=== PATIENT | female | born 1990 | race American Indian/Alaskan Native ===

== ENCOUNTER 2019-11-09 23:53 | Emergency (ER) | payer SELFPAY ==
[2019-11-10 00:05] VITALS: BP 151/104
--- NOTE | 2019-11-10 00:20 | XRay Report ---
CHEST 1 VIEW INDICATION: Chest Pain. COMPARISON: None. FINDINGS: Support devices: None. Heart: Normal. Lungs/Pleura: Subtle asymmetric density in the left lung base could be due to atelectasis but is nons pecific. Pneumonia could have this appearance, correlate clinically. Lungs are otherwise clear. No pl eural abnormality. IMPRESSION: 1. Nonspecific left basilar opacity could be due to atelectasis or pneumonia, correlate clinically. Signer Name: Dexter Morris MD Signed: 11/10/2019 12:15 AM Workstation Name: [id number] [facility] [employer] [facility]
[2019-11-10] MEDS ORDERED: KETOROLAC 30 MG/1 ML INJ IV ONE (03:15)
--- NOTE | 2019-11-10 03:28 | Emergency Department Report ---
ED Chest Pain HPI - General Chief Complaint: Chest Pain Stated Complaint: CHEST PAIN, MIGRAINE Time Seen by Provider: 11/10/19 01:57 Source: patient Mode of arrival: Ambulatory Limitations: No Limitations - History of Present Illness Initial Comments: 29 -year-old female who denies any significant past medical history present to the ER today complaining of left-sided chest pain. Patient states that she is been having constant left-sided chest pain for about 5 days. She describes it as a sharp pain that is nonradiating and seems to be worse when she moves her left arm and with deep breath. She reports SOB when in supine position. She denies any associated diaphoresis, nausea or vomiting, cough or URI symptoms. She denies any lower extremity swelling or cramping. She denies any recent long distance travel, recent surgeries, and she is not any hormones. She also complains of a left retro-orbital headache has been having constantly since last . She states it radiates into the left posterior aspect of her head. She describes any modifying factors. She denies any associated symptoms with headache. She states that she has infrequent headaches, but nothing similar to this. She has tried Excedrin, and Goody powders without relief of the headache. Patient blood pressure is noted to be elevated at triage, but she again denies any history of hypertension. MD Complaint: chest pain, other (Headache) -: Gradual (5 days ago) - Related Data Allergies Allergy/AdvReac Type Severity Reaction Status Date / Time No Known Allergies Allergy Verified 11/09/19 23:58 Heart Score - HEART Score History: Slightly suspicious EKG: Normal Age: < 45 Risk factors: No known risk factors Troponin: < normal limit HEART Score: 0 ED Review of Systems ROS: Stated complaint: CHEST PAIN, MIGRAINE Other details as noted in HPI Constitutional: denies: chills, fever Eyes: denies: eye pain, eye discharge, vision change Respiratory: denies: shortness of breath, SOB with exertion, SOB at rest, wheezing Cardiovascular: chest pain. denies: palpitations, dyspnea on exertion, orthopnea, edema, syncope, paroxysmal nocturnal dyspnea Gastrointestinal: denies: nausea, vomiting Genitourinary: denies: urgency, dysuria, frequency, hematuria Neurological: headache. denies: weakness, numbness, paresthesias, confusion, abnormal gait, vertigo, other ED Past Medical Hx - Past Medical History Previous Medical History?: No - Surgical History Past Surgical History?: No - Social History Smoking Status: Never Smoker Substance Use Type: None ED Physical Exam - General Limitations: No Limitations General appearance: alert, in no apparent distress - Head Head exam: Present: atraumatic, normocephalic, normal inspection - Eye Eye exam: Present: normal appearance, PERRL, EOMI Pupils: Present: normal accommodation - ENT ENT exam: Present: normal exam, mucous membranes moist - Neck Neck exam: Present: normal inspection, full ROM - Respiratory Respiratory exam: Present: normal lung sounds bilaterally. Absent: respiratory distress - Cardiovascular Cardiovascular Exam: Present: regular rate, normal rhythm, normal heart sounds - GI/Abdominal GI/Abdominal exam: Present: soft. Absent: distended - Extremities Exam Extremities exam: Absent: pedal edema, calf tenderness - Neurological Exam Neurological exam: Present: alert, oriented X3, CN II-XII intact, normal gait - Psychiatric Psychiatric exam: Present: normal affect, normal mood - Skin Skin exam: Present: intact ED Course Vital Signs 11/10/19 11/10/19 11/10/19 00:03 03:45 04:15 Temperature 98.1 F Pulse Rate 97 H Respiratory 16 18 18 Rate Blood Pressure 151/104 O2 Sat by Pulse 98 Oximetry ED Medical Decision Making - EKG Data -: EKG Interpreted by Ct EKG shows normal: sinus rhythm Rate: normal - Radiology Data Radiology results: report reviewed Patient: RUSSELL BURTON MR#: [id number] : 1990 Acct:[id number] Age/Sex: 29 / F ADM Date: 11/09/19 Loc: ED Attending Dr: Ordering Physician: LORENE DUONG MD Date of Service: 11/09/19 Procedure(s): XR chest 1V ap Accession Number(s): [id number] cc: ED MD AD Fluoro Time In Minutes: CHEST 1 VIEW INDICATION: Chest Pain. COMPARISON: None. FINDINGS: Support devices: None. Heart: Normal. Lungs/Pleura: Subtle asymmetric density in the left lung base could be due to atelectasis but is nonspecific. Pneumonia could have this appearance, correlate clinically. Lungs are otherwise clear. No pleural abnormality. IMPRESSION: 1. Nonspecific left basilar opacity could be due to atelectasis or pneumonia, correlate clinically. Signer Name: Dexter Morris MD Signed: 11/10/2019 12:15 AM Workstation Name: [id number] Transcribed By: VAZQUEZ Dictated By: Dexter Morris MD Electronically Authenticated By: Dexter Morris MD Signed Date/Time: 11/10/1914 DD/ TD/TT: - Medical Decision Making 29 year old female present to ED c/o left sided chest pain and PIERCE. Her trop was wnl and dd was also nl. Patient BP noted to be elevated in triage but she denies hx of HTN. She denies DM, HPLD, tobacco use or any other risk factors for CAD. She has no risk factors for PE/DVT. CXR is concerning for possible pneumonia, though patient denies any coughing wheezing or uri symptoms but I will cover with antibiotics as a precaution. Her pain probably more musculoskeletal since there is some ttp to left chest on exam reproducing her pain. Pt BP did improve during stay, now at 141/93 - there is still concern though for possible HTN. If she does have HTN that could be contributing to her PIERCE. Pt is neurologically intact, she has no meningeal signs and history, exam and her current condition suggest significant intra-cranial abnl, me ningitis/encephalitis, stroke or other significant pathology at this time, therefore head CT nor further lab testing indicated at this time. Informed patient that her PIERCE could also be related to her elevated BP and recommend close f/u with PCP for monitoring Overall patient reports improvement of her pain after meds. She is currently resting comfortably, in no acute distress, not toxic or ill appearing. She is stable for d/c. PATIENT WAS GIVEN DOWN TIME D/C INSTRUCTIONS AND WRITTEN RX FOR TORADOL AND ZPAK. Critical care attestation.: If time is entered above; I have spent that time in minutes in the direct care of this critically ill patient, excluding procedure time. ED Disposition Clinical Impression: Chest pain, atypical, Costochondritis, acute, Elevated blood pressure reading Disposition: - TO HOME OR SELFCARE Is pt being admited?: No Does the pt Need Aspirin: No Condition: Stable Instructions: Chest Pain (ED), Costochondritis (ED), Acute Headache (ED) Referrals: PRIMARY CARE, [Primary Care Provider] - 3-5 Days YA MOSELEY MD [Staff Physician] - 3-5 Days
== END 2019-11-10 07:10 | disposition home or self-care (01) ==
LOC: ED 23:53
DX: M94.0 Chondrocostal junction syndrome [Tietze] (principal); R51 Headache
CPT/HCPCS: 36415; 71045; 84484; 85379; 93005; 93010; 96374; 99283; J1885